=== PATIENT | male | born 1945 | race Caucasian/White ===

== ENCOUNTER → 2020-07-23 | Outpatient (CLI) | payer OTHER ==
--- NOTE | 2020-07-28 07:14 | SLEEPCENT ---
DATE: 07/23/2020 ORDERED BY: Dr. Grey Nocturnal polysomnography was performed for evaluation of sleep physiology. There was 8 hours and 12 minutes of data reviewed. There was 383.5 minutes of sleep identified. Sleep latency was prolonged at 61 minutes. REM sleep was not achieved. Overall sleep architecture showed poor progression. There was a short period of wake after 1 a.m. Sleep efficiency was 78.7%. The electrocardiogram showed a sinus rhythm with an average heart rate of 62 beats per minute. EEG showed reasonably normal waveforms for wake and sleep stages. There were no focal events identified. There were 120 respiratory events identified of 10 seconds in duration or greater for an apnea-hypopnea index of 18.8. The events were obstructive, not exclusive to sleep stage nor body posture, more frequent in the supine position. Arousals from respiratory events occurred 12.5 times per hour, and oxygen desaturations were seen below 90%. There was some minor activity in the limb leads. Arousals were few, and remaining measures of sleep physiology were normal. IMPRESSION: Obstructive sleep apnea syndrome (G47.33). Apnea-hypopnea index 18.8. RECOMMENDATION: The patient should be encouraged to return to the sleep disorder center for pressure therapy. In the interim, alcohol and sedative avoidance should be practiced and caution exercised during the operation of motor vehicles. [id number]
== END ==
LOC: M SLEEP 20:00
PROVIDERS: ATTEND Family Medicine
DX: G47.33 Obstructive sleep apnea (adult) (pediatric) (principal)